=== PATIENT | male | born 1970 | race Caucasian/White ===

== ENCOUNTER 2021-06-03 15:50 | Emergency (ER) | payer OTHER, SELFPAY ==
[2021-06-03 15:53] VITALS: BP 151/92; PULSE 93; RESP 18; TEMP 36.7; O2SAT 100; BMI 24.2
--- NOTE | 2021-06-03 16:58 | ED.WOUNDLAC ---
HPI - Wound/Laceration General Chief Complaint: Wound/Laceration Stated Complaint: Hand lac/work related Time Seen by Provider: 06/03/21 16:52 Source: patient Mode of arrival: ambulatory Limitations: no limitations History of Present Illness HPI narrative: 42-year-old male presents to the ER for evaluation a wound to his left hand. He reports yesterday while at work he reports being cut by a wooden Pallet. He did not even notice at the time disc noticed he was bleeding afterward. He did not think there was any foreign body left in the wound. He cleaned it up with soap and water and bleeding stopped. A few hours ago he noticed a red streak coming from the wound and going all the way up to his middle upper arm. He has had no fever or chills. No swelling of his arm and no pain at the initial wound site. Onset (ago): day(s) Extremity Location: left: arm, elbow, forearm and hand Place: work Patient tetanus UTD: No Context: accidental Associated symptoms: none Related Data Previous Rx's Medication Instructions Recorded cephalexin 500 mg capsule 500 mg PO Q6H 10 Days #40 cap 06/03/21 doxycycline monohydrate 100 mg 100 mg PO BID #20 tab 06/03/21 tablet Allergies Allergy/AdvReac Type Severity Reaction Status Date / Time No Known Allergies Allergy Verified 06/03/21 15:53 Review of Systems Review of Systems: Constitutional: No Fever, No Chills ss Cardiovascular: No Chest Pain, No SOB Respiratory: No Cough, No Sputum Gastrointestinal: No Nausea, No Vomiting, No Diarrhea, No abdominal Pain Musculoskeletal: No joint pain, No Myalgias Skin: + Skin Lesions, No rash Neuro: No Weakness, No Numbness, No Dizziness, No Headache Heme/Lymph: No Bruising, No Lymphadenopathy PMFSH Social History Social History Advance Directives: No Advance Directives Information Provided: Yes Physical Exam Vital Signs: Vital Signs: Last Vital Signs Temp 98.0 F 06/03/21 15:53 Pulse 94 06/03/21 18:00 Resp 16 06/03/21 18:00 BP 152/88 H 06/03/21 18:00 Pulse Ox 100 06/03/21 18:00 Body Mass Index 24.2 Appearance: Alert. Oriented X3. No acute distress. Eyes: Pupils equal, round and reactive to light. ENT: Pharynx normal. Neck: Normal inspection. Neck supple. CVS: Normal heart rate and rhythm. Pulses normal. Respiratory: No respiratory distress. Breath sounds normal. Abdomen: Soft and nontender. +BS x4 Skin: Skin warm and dry. Normal skin color. Normal skin turgor. No rashes. Extremities: No lower extremity edema. Left hand with minor abrasions to thenar eminence with surrounding erythema and warmth, there is a red streak that extends from the wound up the palmar aspect of the forearm past the elbow to the mid portion of the upper arm. No swelling of the left arm. Compartments are soft and compressible. 2+ radial pulse. Wound is nontender with no palpable foreign body. Neuro: Oriented X 3. No motor deficit. No sensory deficit. Course Course Course Narrative: 50-year-old otherwise healthy male presenting with a minor wound to his left hand that he sustained by scraping against a wood Pallet yesterday at work. He noticed red streaking up his arm and came to the hospital for evaluation. His exam is consistent with lymphangitic spread of infection. He is slightly stable and does not appear to be septic at this time. Will get baseline blood work and blood cultures and give a dose of Ancef IV now. Reevaluation(s) Reevaluation #1: White blood cell count is 12. He remains afebrile. The erythematous streak was marked and them midportion of his upper arm. There has been no extension in the couple hours and he has been in the emergency room. He would like to go home. Case was discussed with Dr. Jack who evaluated the patient at the bedside as well. At this time it is reasonable to discharge the patient with dual coverage antibiotics and close outpatient follow-up. He was given strict instructions to return to ER if there is any worsening of the red streak, or if he develops any fevers or signs of worsening infection. Patient agrees with plan and will closely monitor himself at home. MDM - Wound/Laceration Lab Data Result diagrams: 06/03/21 17:21 06/03/21 17:21 Labs: Lab Results 06/03/21 06/03/21 06/03/21 Range/Units 17:14 17:15 17:21 WBC 12.0 H (4.8-10.8) X10*3/uL RBC 4.14 L (4.60-5.80) X10*6/uL Hgb 13.4 L (14.0-18.0) g/dl Hct 38.8 L (42-52) % MCV 93.7 (80-98) fL MCH 32.4 (27.0-33.0) pg MCHC 34.5 (31.0-36.0) g/dl RDW 13.0 (11.0-16.0) % Plt Count 435 H (160-400) X10*3/uL MPV 7.8 L (9.4-12.4) fL Immature Gran % (Auto) 0.3 (0.0-0.4) % Neut % (Auto) 71.3 (45-73) % Lymph % (Auto) 19.0 L (20-40) % [place] % (Auto) 7.4 (2-11) % Eos % (Auto) 1.7 (0-4) % Baso % (Auto) 0.3 (0-2) % Lymph # (Auto) 2.3 (1.2-4.9) X10*3/uL [place] # (Auto) 0.9 (0.1-1.2) X10*3/uL Eos # (Auto) 0.2 (0.0-0.4) X10*3/uL Baso # (Auto) 0.0 (0.0-0.2) X10*3/uL Abs Immat Gran (auto) 0.04 H (0.00-0.03) X10*3/uL Absolute Neuts (auto) 8.5 H (2.0-8.3) X10*3/uL Absolute Nucleated RBC 0.000 (0.0-0.012) X10*3/uL Nucleated RBC % (auto) 0.0 (0.0-0.2) /100WBC Sodium (135-145) mmol/L Potassium (3.3-5.1) mmol/L Chloride (96-108) mmol/L Carbon Dioxide (22-29) mmol/L Anion Gap (12-20) BUN (9-16) mg/dL Creatinine (0.5-1.4) mg/dL Estim Creat Clear Calc Estimated GFR Random Glucose (60-115) mg/dL Lactic Acid 1.4 (0.5-2.0) mmol/L Calcium (8.4-10.2) mg/dL Magnesium (1.6-2.6) mg/dL Total Bilirubin (0.0-1.0) mg/dL Direct Bilirubin (0.0-0.5) mg/dL AST (5-37) U/L ALT (0-40) U/L Alkaline Phosphatase (39-117) U/L Total Protein (6.5-8.0) g/dL Albumin (3.5-5.0) g/dL COVID-19 ([facility]) Negative (Negative) COVID-19 Clin Com See Note 06/03/21 Range/Units 17:21 WBC (4.8-10.8) X10*3/uL RBC (4.60-5.80) X10*6/uL Hgb (14.0-18.0) g/dl Hct (42-52) % MCV (80-98) fL MCH (27.0-33.0) pg MCHC (31.0-36.0) g/dl RDW (11.0-16.0) % Plt Count (160-400) X10*3/uL MPV (9.4-12.4) fL Immature Gran % (Auto) (0.0-0.4) % Neut % (Auto) (45-73) % Lymph % (Auto) (20-40) % [place] % (Auto) (2-11) % Eos % (Auto) (0-4) % Baso % (Auto) (0-2) % Lymph # (Auto) (1.2-4.9) X10*3/uL [place] # (Auto) (0.1-1.2) X10*3/uL Eos # (Auto) (0.0-0.4) X10*3/uL Baso # (Auto) (0.0-0.2) X10*3/uL Abs Immat Gran (auto) (0.00-0.03) X10*3/uL Absolute Neuts (auto) (2.0-8.3) X10*3/uL Absolute Nucleated RBC (0.0-0.012) X10*3/uL Nucleated RBC % (auto) (0.0-0.2) /100WBC Sodium 134 L (135-145) mmol/L Potassium 4.0 (3.3-5.1) mmol/L Chloride 100 (96-108) mmol/L Carbon Dioxide 24 (22-29) mmol/L Anion Gap 14 (12-20) BUN 5 L (9-16) mg/dL Creatinine 0.85 (0.5-1.4) mg/dL Estim Creat Clear Calc 95.9 Estimated GFR > 60 Random Glucose 86 (60-115) mg/dL Lactic Acid (0.5-2.0) mmol/L Calcium 9.2 (8.4-10.2) mg/dL Magnesium 2.5 (1.6-2.6) mg/dL Total Bilirubin 0.3 (0.0-1.0) mg/dL Direct Bilirubin < 0.2 (0.0-0.5) mg/dL AST 22 (5-37) U/L ALT 15 (0-40) U/L Alkaline Phosphatase 99 (39-117) U/L Total Protein 7.9 (6.5-8.0) g/dL Albumin 4.5 (3.5-5.0) g/dL COVID-19 ([facility]) (Negative) COVID-19 Clin Com Discharge Plan Discharge Clinical Impression: Lymphangitis Patient Disposition: Home, Self-Care Instructions: Lymphangitis (ED) Additional Instructions: Your given a dose of IV antibiotics today in the emergency room Take both of the prescribed antibiotics as directed. Complete the entire course. Closely monitor the red mo on her arm, if the redness extends beyond the marked area it is important the come back to ER for evaluation. Other signs or symptoms that should prompt urgent evaluation are development of fever, chills, & swelling of your arm. You can use warm compresses to the area to help increase blood flow and bring infection fighting cells to the area. Follow-up with your doctor this week. Prescriptions: New doxycycline monohydrate 100 mg tablet 100 mg PO BID Qty: 20 RF: 0 cephalexin 500 mg capsule 500 mg PO Q6H 10 Days Qty: 40 RF: 0 Interventions: ED Discharge Assessment Last Done: 06/03/21 18:30 Discharge Date/Time: 06/03/21 18:30
[2021-06-03 17:27] LABS: MANUAL DIFF FLAG NO
[2021-06-03 17:28] LABS: Basophils Percent Auto 0.3 % (0-2); Eosinophils Absolute Auto 0.2 X10*3/uL (0.0-0.4); Eosinophils Percent Auto 1.7 % (0-4); Hematocrit 38.8 % (42-52); Hemoglobin 13.4 g/dl (14.0-18.0); Imm Gran Abs Auto 0.04 X10*3/uL (0.00-0.03); Imm Gran Pct Auto 0.3 % (0.0-0.4); Lymphocytes Absolute Auto 2.3 X10*3/uL (1.2-4.9); Mean Corpuscular HGB Conc 34.5 g/dl (31.0-36.0); Mean Corpuscular Hemoglobin 32.4 pg (27.0-33.0); Mean Corpuscular Volume 93.7 fL (80-98); Mean Platelet Volume 7.8 fL (9.4-12.4); Monocytes Absolute Auto 0.9 X10*3/uL (0.1-1.2); Monocytes Percent Auto 7.4 % (2-11); Neutrophils Absolute Auto 8.5 X10*3/uL (2.0-8.3); Neutrophils Percent Auto 71.3 % (45-73); Platelet Count 435 X10*3/uL (160-400); Red Blood Count 4.14 X10*6/uL (4.60-5.80)
[2021-06-03] MEDS: ceFAZolin Sodium 3 GM in 0.9 % Sodium Chloride 100 ML IV (17:29)
[2021-06-03 17:48] LABS: Lactic Acid 1.4 mmol/L (0.5-2.0)
[2021-06-03 17:53] LABS: Alanine Aminotransferase 15 U/L (0-40); Albumin Level 4.5 g/dL (3.5-5.0); Alkaline Phosphatase 99 U/L (39-117); Anion Gap 14 (12-20); Aspartate Amino Transferase 22 U/L (5-37); Bilirubin Direct < 0.2 mg/dL (0.0-0.5); Bilirubin Total 0.3 mg/dL (0.0-1.0); Blood Urea Nitrogen 5 mg/dL (9-16); Calcium 9.2 mg/dL (8.4-10.2); Carbon Dioxide 24 mmol/L (22-29); Chloride 100 mmol/L (96-108); Creatinine Clr Calc Pharmacy 95.9; Estimated Glomerular Filt Rate > 60; Glucose Random 86 mg/dL (60-115); Magnesium 2.5 mg/dL (1.6-2.6); Sodium 134 mmol/L (135-145); Total Protein 7.9 g/dL (6.5-8.0)
[2021-06-03 17:54] LABS: COVID-19 Test Negative (Negative)
[2021-06-03 18:00] VITALS: BP 152/88; PULSE 94; RESP 16; O2SAT 100
[2021-06-03] MEDS: Diphth,Pertus(ACell),Tet Adult 0.5 ML SYRINGE IM (18:07)
== END 2021-06-03 18:30 | disposition home or self-care (01) ==
PROVIDERS: Physician Assistant; Emergency Provider Internal Medicine
DX: S60.512A Abrasion of left hand, initial encounter (principal); I89.1 Lymphangitis; M79.642 Pain in left hand; Y28.9XXA Contact with unspecified sharp object, undetermined intent, initial encounter; Y93.9 Activity, unspecified; Y92.9 Unspecified place or not applicable; Y99.0 Civilian activity done for income or pay; Z20.822 Contact with and (suspected) exposure to COVID-19; Z79.899 Other long term (current) drug therapy
CPT/HCPCS: 36415; 80048; 80076; 83605; 83735; 85025; 87040; 87635; 90471; 90715; 96365; 99284; J0690